=== PATIENT | male | born 1990 | race African-American/Black ===

== ENCOUNTER 2021-09-12 00:57 | Emergency (ER) | payer OTHER ==
[~2021-09-12] VITALS: Ht 177.8 cm; Wt 86.2 kg
[2021-09-12 01:21] VITALS: BP 158/87
--- NOTE | 2021-09-12 02:29 | NUR ---
PT AMBULATED TO BED 2
--- NOTE | 2021-09-12 02:44 | NUR ---
31 YO M BIB SELF WITH C/C OF 9/10 RIGHT SIDED SHARP CHEST PAIN THAT COMES AND GOES [id number]. PT STATES IT SOMETIMES RADIATES TO MIDDLE OF CHEST. PT DENIES SOB, COUGH, FEVER, N/V/D. PT STATES PAIN STARTED OUT OF NO WHERE. DENIES HX, RX AND ALLERGIES
--- NOTE | 2021-09-12 03:20 | NUR ---
LAB AT BEDSIDE.
[2021-09-12] MEDS ORDERED: IBUPROFEN 600 MG TAB PO ONE (03:40)
[2021-09-12] MEDS ORDERED: IBUP-2213 PO (04:07)
[2021-09-12] MEDS ORDERED: FAMO-92 PO (05:09)
[2021-09-12] MEDS ORDERED: KETOROLAC 30 MG/ML VIAL IM ONE (05:10)
[2021-09-12] MEDS ORDERED: FAMOTIDINE 20 MG TAB PO ONE (05:10)
--- NOTE | 2021-09-12 05:29 | NUR ---
LAB DRAWN AND TAKEN TO LAB, RESERVATIONS CLERK STATED TO LEAVE IT ON TOP OF THE TABLE IN FRONT.
[2021-09-12 06:20] VITALS: BP 126/78
--- NOTE | 2021-09-12 06:20 | NUR ---
Patient discharged with v/s stable. Written and verbal after care instructions given and explained. Patient alert, oriented and verbalized understanding of instructions. Ambulatory with steady gait. All questions addressed prior to discharge. ID band removed. Patient advised to follow up with PMD. Rx of IBUPROFEN AND FAMOTIDINE given. Patient educated on indication of medication including possible reaction and side effects. Opportunity to ask questions provided and answered.
== END 2021-09-12 06:20 | disposition home or self-care (01) ==
LOC: MED 00:57
DX: R07.9 Chest pain, unspecified (principal); Z79.899 Other long term (current) drug therapy
CPT/HCPCS: 36415; 71045; 84484; 93005; 96372; 99285; J1885